=== PATIENT | female | born 1960 | race Caucasian/White ===

== ENCOUNTER → 2020-09-27 | Outpatient (CLI) | payer OTHER ==
[~2020-09-27] MED LIST: ALBUTEROL MDI; AMLO10 PO; BP MED; CHOL10002 PO; FISH1000 PO; HYDACE5 PO; LISI20 PO; OMEP20ER PO; RANI150 PO; Robaxin-750750 MG PO; SULTRIDS PO; [UNRECOGNIZED DRUG - OTHER]
== END | disposition home or self-care (01) ==
LOC: LAB 17:15 → LAB SHORT 17:15
DX: I10 Essential (primary) hypertension (principal); Z88.0 Allergy status to penicillin; Z91.048 Other nonmedicinal substance allergy status
CPT/HCPCS: 82043

== ENCOUNTER 2021-02-16 12:34 | Emergency (ER) | payer OTHER ==
[~2021-02-16] VITALS: Ht 172.7 cm; Wt 122.5 kg
[2021-02-16 13:21] LABS: Alanine Aminotransfer (ALT/SGP 44 U/L (12-78); Albumin, Blood 3.3 g/dL (3.4-5.0); Albumin/Globulin Ratio 0.8 (0.8-1.8); Alk Phos 97 U/L (50-136); Anion Gap 7 mmol/L (6-16); Aspartate Aminotrans (AST/SGOT 73 U/L (12-37); Bilirubin, Total 0.2 mg/dL (0.1-1.0); Blood Urea Nitrogen 12 mg/dL (8-24); Bun/Creatinine Ratio 16.9 (12.0-20.0); CO2, Blood 27 mmol/L (21-32); Calcium, Blood 8.5 mg/dL (8.5-10.1); Chloride, Blood 106 mmol/L (98-108); Creatinine, Blood 0.71 mg/dL (0.40-1.00); Glomerular Filtration Rate >60 (60-); Glucose, Blood 112 mg/dL (70-99); Potassium, Blood 3.2 mmol/L (3.5-5.5); Sodium, Blood 140 mmol/L (136-145); Total Protein, Blood 7.3 g/dL (6.4-8.2)
[2021-02-16 13:27] LABS: BASOPHILS ABSOLUTE AUTO 0.03 K/mm3 (0.00-0.23); BASOPHILS PERCENT AUTO 1 % (0-2); EOSINOPHILS ABSOLUTE AUTO 0.08 K/mm3 (0.00-0.68); EOSINOPHILS PERCENT AUTO 2 % (0-6); Hematocrit 37.5 % (33.0-51.0); Hemoglobin 11.8 g/dL (11.5-16.0); IMMATURE GRAN ABSOLUTE AUTO 0.02 K/mm3 (0.00-0.10); IMMATURE GRAN PERCENT AUTO 1 % (0-1); LYMPHOCYTES ABSOLUTE AUTO 1.34 K/mm3 (0.84-5.20); LYMPHOCYTES PERCENT AUTO 31 % (21-46); MONOCYTES ABSOLUTE AUTO 0.35 K/mm3 (0.16-1.47); MONOCYTES PERCENT AUTO 8 % (4-13); Mean Corpuscular HGB 28.2 pg (26.0-34.0); Mean Corpuscular HGB Conc 31.5 g/dL (31.5-36.5); Mean Corpuscular Volume 90 fL (80-100); Mean Platelet Volume 9.1 fL (9.1-12.4); NEUTROPHILS ABSOLUTE AUTO 2.48 K/mm3 (1.96-9.15); NEUTROPHILS PERCENT AUTO 58 % (41-73); Platelet Count 216 K/mm3 (150-400); RDW Coefficient Variation 14.7 % (11.7-14.2); RDW Standard Deviation 47.1 fL (35.1-46.3); Red Blood Cell Count 4.19 M/mm3 (3.80-5.20)
[2021-02-16 13:31] LABS: Ethanol (Alcohol), Blood, Med 333 mg/dL
[2021-02-16] MEDS ORDERED: MONT10T (13:33)
[2021-02-16] MEDS ORDERED: CYCL10 PO (13:33)
[2021-02-16] MEDS ORDERED: CEPH500 PO (14:00)
== END 2021-02-16 14:19 | disposition home or self-care (01) ==
LOC: ER 12:34
PROVIDERS: Emergency Medicine
DX: S02.31XA Fracture of orbital floor, right side, initial encounter for closed fracture (principal); S01.81XA Laceration without foreign body of other part of head, initial encounter; S80.02XA Contusion of left knee, initial encounter; S80.01XA Contusion of right knee, initial encounter; F10.129 Alcohol abuse with intoxication, unspecified; W19.XXXA Unspecified fall, initial encounter
CPT/HCPCS: 70450; 70480; 72125; 80053; 85025; 90714; 93005; 93010; A9270; G0480

== ENCOUNTER → 2023-09-15 | Outpatient (CLI) | payer OTHER ==
[~2023-09-15] MED LIST changes: +CEPH500 PO; +CYCL10 PO; +MONT10T
[2023-09-15 19:42] LABS: BASOPHILS ABSOLUTE AUTO 0.03 K/mm3 (0.00-0.23); BASOPHILS PERCENT AUTO 1 % (0-2); EOSINOPHILS ABSOLUTE AUTO 0.09 K/mm3 (0.00-0.68); EOSINOPHILS PERCENT AUTO 2 % (0-6); Hematocrit 39.7 % (33.0-51.0); Hemoglobin 13.4 g/dL (11.5-16.0); IMMATURE GRAN ABSOLUTE AUTO 0.01 K/mm3 (0.00-0.10); IMMATURE GRAN PERCENT AUTO 0 % (0-1); LYMPHOCYTES ABSOLUTE AUTO 1.11 K/mm3 (0.84-5.20); LYMPHOCYTES PERCENT AUTO 22 % (21-46); MONOCYTES ABSOLUTE AUTO 0.35 K/mm3 (0.16-1.47); MONOCYTES PERCENT AUTO 7 % (4-13); Mean Corpuscular HGB 29.6 pg (26.0-34.0); Mean Corpuscular HGB Conc 33.8 g/dL (31.5-36.5); Mean Corpuscular Volume 88 fL (80-100); Mean Platelet Volume 10.1 fL (9.1-12.4); NEUTROPHILS PERCENT AUTO 69 % (41-73); Platelet Count 256 K/mm3 (150-400); RDW Coefficient Variation 12.9 % (11.7-14.2); RDW Standard Deviation 42.1 fL (35.1-46.3); Red Blood Cell Count 4.52 M/mm3 (3.80-5.20); White Blood Cell Count 5.09 K/mm3 (4.00-11.30)
[2023-09-15 20:01] LABS: Alanine Aminotransfer (ALT/SGP 24 U/L (12-78); Albumin, Blood 3.9 g/dL (3.4-5.0); Albumin/Globulin Ratio 1.1 (0.8-1.8); Alk Phos 66 U/L (50-136); Anion Gap 11 mmol/L (3-11); Aspartate Aminotrans (AST/SGOT 16 U/L (12-37); Bilirubin, Total 0.4 mg/dL (0.1-1.0); Blood Urea Nitrogen 20 mg/dL (8-24); Bun/Creatinine Ratio 24.2 (12.0-20.0); CHOL/HDL RATIO 3.5; CO2, Blood 26 mmol/L (21-32); Calcium, Blood 9.5 mg/dL (8.5-10.1); Chloride, Blood 106 mmol/L (98-108); Cholesterol 228 mg/dL (50-200); Creatinine, Blood 0.83 mg/dL (0.40-1.00); Globulin, Blood 3.7 g/dL (2.2-4.0); Glomerular Filtration Rate 80 (60-); Glucose, Blood 126 mg/dL (70-99); HDL Cholesterol 66 mg/dL (>39); Low Density Lipoprotein Chol 129 mg/dL (0-110); Potassium, Blood 3.6 mmol/L (3.5-5.5); Sodium, Blood 139 mmol/L (136-145); Total Protein, Blood 7.6 g/dL (6.4-8.2); Triglycerides 164 mg/dL (30-160); Very Low Density Lipoprot Chol 32 mg/dL (6-32)
[2023-09-18 11:22] LABS: HIV 1,2 COMBO ANTIGEN/ANTIBODY Negative (Negative)
[2023-09-18 12:51] LABS: HEPATITIS C AB CIA INTERP Negative (Negative); HEPATITIS C ANTIBODY CIA INDEX 0.06 IV
== END | disposition home or self-care (01) ==
LOC: LAB SHORT 19:09 → LAB 19:09
PROVIDERS: Nurse Practitioner Family
DX: Z13.6 Encounter for screening for cardiovascular disorders (principal); Z11.59 Encounter for screening for other viral diseases; I10 Essential (primary) hypertension; R53.83 Other fatigue
CPT/HCPCS: 80053; 80061; 84443; 85025; 86803; 87389

== ENCOUNTER 2024-01-19 07:11 | Day surgery (SDC) | payer OTHER ==
[2024-01-19] MEDS ORDERED: Voltaren100 GM (07:27)
[2024-01-19] MEDS ORDERED: NS 500 ML IV ONE (07:30)
[2024-01-19] MEDS ORDERED: FentaNYL Citrate 50 MCG/ML 2 ML Injection ONE (07:35)
[2024-01-19] MEDS ORDERED: Midazolam HCl 1MG / ML 2ML Vial ONE (07:35)
--- NOTE | 2024-01-19 07:47 | NUR ---
01/19/24 0747 Chelsea Brennan T/O PERFORMED AT BEDSIDE AT [address] HORNER IMMEDIATELY PRIOR TO INJECTION OF 8ML OF 10ML SOLUTION CONSISTING OF 9ML 1% LIDOCAINE WITH EPI [id number] AND 1ML 8.4% SODIUM BICARBONATE.
[2024-01-19 08:18] VITALS: BP 144/60
== END 2024-01-19 08:27 | disposition home or self-care (01) ==
LOC: ORSCSDS 07:11
PROVIDERS: Orthopaedic Surgery
PROC: 01N54ZZ Release Median Nerve, Percutaneous Endoscopic Approach (ICD-10-PCS; principal; 2024-01-19 09:00)
DX: G56.03 Carpal tunnel syndrome, bilateral upper limbs (principal); J45.909 Unspecified asthma, uncomplicated; J44.9 Chronic obstructive pulmonary disease, unspecified; I10 Essential (primary) hypertension; K21.9 Gastro-esophageal reflux disease without esophagitis; E66.01 Morbid (severe) obesity due to excess calories; Z68.41 Body mass index [BMI] 40.0-44.9, adult; Z79.899 Other long term (current) drug therapy
CPT/HCPCS: J2250; J3010

== ENCOUNTER 2024-04-19 08:37 | Day surgery (SDC) | payer OTHER ==
[~2024-04-19] VITALS: Ht 167.6 cm; Wt 118.7 kg
[~2024-04-19 08:37] MED LIST changes: +Lidocaine 1%-Epineph 1:100000 20 ML MDV ONE; +NS 500 ML IV ONE; +Sodium Bicarb 8.4% 1 MEQ/ML 50 ML Vial ONE; +Voltaren100 GM
[2024-04-19] MEDS ORDERED: POTA10T PO (09:03)
[2024-04-19] MEDS ORDERED: LISINOPRIL-HCT1 EAC1 PO (09:04)
[2024-04-19] MEDS ORDERED: NS 500 ML IV ONE (09:12)
--- NOTE | 2024-04-19 09:29 | NUR ---
04/19/24 0929 Chelsea Brennan TIME OUT PERFORMED AT BEDSIDE WITH DR HORNER AT [address] HORNER INJECTING 9ML OF SOLUTION CONSISTING OF 1ML 8.4% SODIUM BICARBONATE AND 9ML 1% LIDOCAINE WITH EPI [id number] INTO LEFT HAND. PATIENT TOLERATED PROCEDURE WELL.
[2024-04-19] MEDS ORDERED: propofoL 20 ML IV ONE (10:11)
[2024-04-19 11:07] VITALS: BP 109/95
--- NOTE | 2024-04-19 11:29 | NUR ---
04/19/24 Rossana Padilla PT DENIED ANY PAIN, NO NAUSEA. PT ABLE TO TOLERATE FLUIDS AND SNACKS WELL. PT EDUCATION PROVIDED, ALL QUESTIONS ANSWERED AND CONCERNS ADDRESSED. PT PLEASANT AND COOPERATIVE WITH CARE PROVIDED. VSS, WILL ASSIST PT TO WC AND HELP HER GET TO HER PRIVATE VEHICLE.
== END 2024-04-19 11:27 | disposition home or self-care (01) ==
LOC: ORSCSDS 08:37
PROVIDERS: Orthopaedic Surgery
PROC: 01N54ZZ Release Median Nerve, Percutaneous Endoscopic Approach (ICD-10-PCS; principal; 2024-04-19 10:15)
DX: G56.02 Carpal tunnel syndrome, left upper limb (principal); J45.909 Unspecified asthma, uncomplicated; K21.9 Gastro-esophageal reflux disease without esophagitis; E66.9 Obesity, unspecified; Z68.41 Body mass index [BMI] 40.0-44.9, adult; Z79.899 Other long term (current) drug therapy
CPT/HCPCS: J2704; J7040

== ENCOUNTER 2024-08-26 08:22 | Day surgery (SDC) | payer OTHER ==
[~2024-08-26] VITALS: Ht 165.1 cm; Wt 115.0 kg
[~2024-08-26 08:22] MED LIST changes: +LISINOPRIL-HCT1 EAC1 PO; +LOSARTAN POTASS50 M1 PO; -Lidocaine 1%-Epineph 1:100000 20 ML MDV ONE; +MONT10T PO; -NS 500 ML IV ONE; +POTA10T PO; -Sodium Bicarb 8.4% 1 MEQ/ML 50 ML Vial ONE
[2024-08-26 09:28] VITALS: BP 172/90
--- NOTE | 2024-08-26 09:40 | NUR ---
History, Chart, Medications and Allergies reviewed before start of procedure. Pre-Op teaching done. Pt verbalizes understanding. Patient confirms NPO status and agrees with scheduled surgery. Patient States Post-Procedure ride home has been arranged.
--- NOTE | 2024-08-26 09:41 | NUR ---
08/26/24 0941 Mragarita Wilson History, Chart, Medications and Allergies reviewed before start of procedure.MONITOR INTACT WITH CONTINUOUS PULSE OXIMETRY, CONTINUOUS END TITAL CO2, 3-LEAD EKG AND INTERMITTENT BLOOD PRESSURE. O2 VIA POM INTACT THROUGHOUT SEDATION/PROCEDURE. DR. KATHY PIKE [facility] [place], SEE ANESTHESIA RECORD.
[2024-08-26 10:10] VITALS: BP 123/73
== END 2024-08-26 10:30 | disposition home or self-care (01) ==
LOC: ORSCMMR 08:22 → ORD 09:30 → ORSCMMR 09:30
PROVIDERS: Internal Medicine Gastroenterology
PROC: 0DJD8ZZ Inspection of Lower Intestinal Tract, Via Natural or Artificial Opening Endoscopic (ICD-10-PCS; principal; 2024-08-26 09:30)
DX: Z12.11 Encounter for screening for malignant neoplasm of colon (principal); I10 Essential (primary) hypertension; J44.9 Chronic obstructive pulmonary disease, unspecified; E66.01 Morbid (severe) obesity due to excess calories; Z68.41 Body mass index [BMI] 40.0-44.9, adult; Z79.899 Other long term (current) drug therapy
CPT/HCPCS: J2704; J7120